=== PATIENT | male | born 1990 | race Hispanic/Latino ===

== ENCOUNTER 2019-01-27 18:22 | Inpatient (IN) | payer MEDICAID, OTHER ==
[~2019-01-27] VITALS: Ht 170.2 cm; Wt 71.7 kg
[2019-01-27] MEDS ORDERED: ACETAMINOPHEN EXTRA STRENGTH 500 MG TABLET ONE (18:52)
[2019-01-27] MEDS ORDERED: LORAZEPAM 2 MG/ML 1 ML VIAL ONE (18:52)
[2019-01-27 20:24] LABS: BASOPHILS % (AUTO) 0.1 % (0.0-5.0); EOSINOPHILS % (AUTO) 0.1 % (0.0-8.0); HEMATOCRIT 48.2 % (42-54); LYMPHOCYTES % (AUTO) 4.3 % (21.0-51.0); MEAN CORPUSCULAR HEMOGLOBIN 30.4 pg (27.0-33.0); MEAN CORPUSCULAR HGB CONC 33.7 g/dL (32.0-36.0); MEAN CORPUSCULAR VOLUME 90.2 fL (79-99); MONOCYTES % (AUTO) 3.7 % (3.0-13.0); NEUTROPHILS % (AUTO) 91.8 % (40.0-77.0); PLATELET COUNT (AUTO) 250 K/uL (130-400); RED BLOOD CELL COUNT(AUTO) 5.35 MIL/uL (4.50-6.20); RED CELL DISTRIBUTION WIDTH 13.2 % (11.0-15.5); WHITE BLOOD COUNT (AUTO) 19.4 K/uL (4.8-10.8)
[2019-01-27] MEDS ORDERED: ZOSYN 3.375GM+NS 50ML 50 ML IV ONE (20:35)
[2019-01-27 20:40] LABS: CREATININE 1.3 mg/dL (0.5-1.5); POTASSIUM 3.3 mmol/L (3.5-5.1)
[2019-01-27] MEDS ORDERED: FENTANYL CITRATE PF 50 MCG/1 ML 2ML VIAL ONE (21:09)
[2019-01-27] MEDS: SODIUM CHLORIDE 0.9% 1000ML 1,000 ML IV SCH (21:32)
[2019-01-27] MEDS ORDERED: ACETAMINOPHEN 325 MG TAB PO PRN (21:45)
[2019-01-27] MEDS ORDERED: ONDANSETRON HCL 4 MG/2 ML VIAL IV PRN (21:45)
[2019-01-27] MEDS ORDERED: VANCOMYCIN 1GM+NS 250ML 250 ML IV ONE (21:54)
[2019-01-27] MEDS ORDERED: VANCOMYCIN PROTOCOL PER PHARMACY IV SCH (22:15)
[2019-01-27] MEDS ORDERED: COMPOUND IV REFRIGERATED 1 EACH IVSOLN MISC PRN (22:15)
[2019-01-27] MEDS ORDERED: ACETAMINOPHEN 325 MG TAB ONE (22:56)
[2019-01-27] MEDS ORDERED: VANCOMYCIN 1.5 GM in SODIUM CHLORIDE 0.9% 250 ML IV ONE (23:00)
[2019-01-27 23:45] VITALS: BP 116/64
[2019-01-28] MEDS: POTASSIUM CHLORIDE 20MEQ/100ML 100 ML IV PRN ×2 (00:58→05:59)
[2019-01-28] MEDS: LIDOCAINE HCL-MPF 1% 2ML VIAL IVP PRN ×2 (00:59→05:59)
[2019-01-28 03:00] VITALS: BP 130/58
[2019-01-28] MEDS: ACETAMINOPHEN 325 MG TAB PO PRN ×3 (03:50→20:47)
[2019-01-28] MEDS: SODIUM CHLORIDE 0.9% 1000ML 1,000 ML IV SCH ×2 (05:45→09:50)
[2019-01-28] MEDS: ZOSYN 3.375GM+NS 50ML 50 ML IV SCH ×3 (05:45→20:47)
[2019-01-28 08:00] VITALS: BP 112/68
[2019-01-28] MEDS: VANCOMYCIN 1GM+NS 250ML 250 ML IV SCH ×3 (09:49→20:47)
[2019-01-28] MEDS: FAMOTIDINE/PF 20 MG/2 ML VIAL IV SCH ×2 (09:50→20:48)
[2019-01-28 12:00] VITALS: BP 118/72
[2019-01-28 16:00] VITALS: BP 119/62
[2019-01-28 16:35] LABS: AMPHET/METH SCREEN,URINE NEGATIVE (NEGATIVE); BARBITURATE SCREEN, URINE NEGATIVE (NEGATIVE); BENZODIAZEPINES SCREEN,URINE POSITIVE (NEGATIVE); CANNABINOID SCREEN,URINE NEGATIVE (NEGATIVE); COCAINE SCREEN,URINE POSITIVE (NEGATIVE); OPIATE SCREEN,URINE NEGATIVE (NEGATIVE); PHENCYCLIDINE SCREEN,URINE NEGATIVE (NEGATIVE)
[2019-01-28] MEDS: LORAZEPAM 2 MG/ML 1 ML VIAL IM PRN (17:38)
--- NOTE | 2019-01-28 18:23 | NUR ---
IA POSTPONED PRIMARY RN STATES PATIENT IS SHOWING SIGNS OF WITHDRAWAL. MEDICATION BEING ORDERED. WILL DEFER IA AT THIS TIME
[2019-01-28 19:00] VITALS: BP 107/54
[2019-01-28] MEDS ORDERED: CHLORDIAZEPOXIDE HCL 25 MG CAP PO ONE (21:00)
[2019-01-28] MEDS: MORPHINE SULFATE 4 MG/1ML SYG IV PRN (21:24)
[2019-01-29] VITALS: BP 126/71
[2019-01-29] MEDS: LORAZEPAM 2 MG/ML 1 ML VIAL IM PRN ×2 (00:57→14:36)
[2019-01-29] MEDS: MORPHINE SULFATE 4 MG/1ML SYG IV PRN ×4 (03:24→23:56)
[2019-01-29 04:00] VITALS: BP 125/70
[2019-01-29] MEDS: ZOSYN 3.375GM+NS 50ML 50 ML IV SCH ×3 (05:04→20:43)
[2019-01-29] MEDS: VANCOMYCIN 1GM+NS 250ML 250 ML IV SCH (05:04)
[2019-01-29 07:00] VITALS: BP 114/62
--- NOTE | 2019-01-29 07:30 | NUR ---
PATIENT UPDATE PT WITH UNPLEASANT BEHAVIOR, COMPLAINING ABOUT THAT HE'S BEEN ASKING FOR PAIN MED SINCE 1900 AND NOBODY LISTENS. ASKING FOR THE DERMATOLOGICAL SURGEON FOR A NURSE THAT WILL GIVE HIM PAIN MED ON TIME. WAS MEDICATED WITH TYLENOL FOR TEMP OF 100.7, PT ON BOTH THE VANCOMYCIN AND ZOSYN, STARTED ON LIBRIUM LAST NIGHT. WAS ASKING FOR THE ATIVAN RIGHT AFTER THE LIBRIUM WAS GIVEN. RT ARM WITH MARKED REDNESS AND SWELLING, PT ADMITTED BEING ON MARIJUANA, COCAINE AND HEROIN AND THE RT ARM CELLULITIS WAS SECONDARY TO THESE DRUGS THAT HE WAS INJECTING TO HIMSELF. DENIES HAVING HALLUCINATIONS, MARKED ANXIETY TO THE POINT OF RESTLESS, WANTING THE ATIVAN , MADE AWARE THAT IT'S EVERY 6 HRS. PT ORIENTED TO PERSON ONLY, KNOWS HIS NAME, HE DOESN'T WHERE HE'S AT, AND HE DOESN'T KNOW THE DATE. HE WANTS TO BE GIVEN HIS PAIN MED AND ANXIETY MED SOON HE ASKS FOR IT. MONITORED CLOSELY FOR WITHDRAWAL SYMPTOMS, CIWA SCORE OF 16. HIGHEST TEMP AT 100.7 LAST NIGHT. UNABLE TO TAKE PO LIQUIDS WELL, IVF D/C, WILL BE STARTED ON A BANANA BAG THIS AM.
[2019-01-29] MEDS: FAMOTIDINE/PF 20 MG/2 ML VIAL IV SCH ×2 (09:31→19:37)
[2019-01-29] MEDS: ENOXAPARIN SODIUM 40 MG/0.4 ML SYRINGE SQ SCH (09:47)
[2019-01-29] MEDS: M.V.I. IV [ADULT] 10 ML, FOLIC ACID 1 MG, THIAMINE HCL 100 MG in SODIUM CHLORIDE 0.9% 1... IV SCH (09:48)
[2019-01-29 11:00] VITALS: BP 115/64
[2019-01-29 12:36] LABS: BASOPHILS % (AUTO) 0.2 % (0.0-5.0); EOSINOPHILS % (AUTO) 0.7 % (0.0-8.0); HEMATOCRIT 36.2 % (42-54); MEAN CORPUSCULAR HEMOGLOBIN 30.8 pg (27.0-33.0); MEAN CORPUSCULAR HGB CONC 33.8 g/dL (32.0-36.0); MONOCYTES % (AUTO) 3.2 % (3.0-13.0); NEUTROPHILS % (AUTO) 90.9 % (40.0-77.0); PLATELET COUNT (AUTO) 180 K/uL (130-400); RED BLOOD CELL COUNT(AUTO) 3.98 MIL/uL (4.50-6.20); RED CELL DISTRIBUTION WIDTH 13.3 % (11.0-15.5); WHITE BLOOD COUNT (AUTO) 16.1 K/uL (4.8-10.8)
[2019-01-29 12:53] LABS: CREATININE 1.1 mg/dL (0.5-1.5); POTASSIUM 3.5 mmol/L (3.5-5.1)
[2019-01-29] MEDS ORDERED: VANCOMYCIN 1GM+NS 250ML 250 ML IV SCH (13:00)
[2019-01-29] MEDS: VANCOMYCIN 1.5 GM in SODIUM CHLORIDE 0.9% 250 ML IV SCH ×2 (14:00→20:44)
[2019-01-29 16:00] VITALS: BP 125/78
[2019-01-29] MEDS: ACETAMINOPHEN 325 MG TAB PO PRN ×2 (16:51→23:27)
--- NOTE | 2019-01-29 17:50 | NUR ---
CM IA IA WITH FAMILY- MOM AND DAD. PATIENT STUPOSU, SNORING. MOM AND DAD ENG SPKEING; PT LIVES WIHT PARENTS,PARTNER & . MOM STATES RECENTLY LOST HIS JOB, RECENT SERIOUS DEPRESSION, ESCALATION OF DRUB USE; STATES NO MD EVER. MOM EXPRESSES DISTRESS AND GRIEF. 1. SELF PAY PKT WILL BE GIVNE - FOR DOVE CLARE AND FOR SELF HELP DRUG ABSTINENCE PROGRAMS 2. WILL FOLLOW WEANING DRUG WEANING PROCESS CM TO ASK FOR CRATE MAKER CONSULT Addendum: 01/29/19 at 1826 by CARLOS NAVARRO RN CM Amended: Links added.
[2019-01-29 19:00] VITALS: BP 115/55
[2019-01-29] MEDS: SODIUM CHLORIDE 0.9% 1000ML 1,000 ML IV SCH (20:44)
[2019-01-30] VITALS (27 sets, daily range): BP systolic 99–129; BP diastolic 47–89
[2019-01-30] MEDS: MORPHINE SULFATE 4 MG/1ML SYG IV PRN ×4 (03:53→21:55)
[2019-01-30] MEDS ORDERED: LIDOCAINE HCL 2% VISCOUS 15 ML UDCUP PO PRN (04:30)
[2019-01-30 04:39] LABS: HEMATOCRIT 35.8 % (42-54); MEAN CORPUSCULAR HGB CONC 34.2 g/dL (32.0-36.0); MEAN CORPUSCULAR VOLUME 90.5 fL (79-99); PLATELET COUNT (AUTO) 182 K/uL (130-400); RED BLOOD CELL COUNT(AUTO) 3.96 MIL/uL (4.50-6.20); RED CELL DISTRIBUTION WIDTH 13.4 % (11.0-15.5); WHITE BLOOD COUNT (AUTO) 13.1 K/uL (4.8-10.8)
[2019-01-30 05:00] LABS: CREATININE 0.9 mg/dL (0.5-1.5); POTASSIUM 3.4 mmol/L (3.5-5.1)
[2019-01-30] MEDS: ZOSYN 3.375GM+NS 50ML 50 ML IV SCH ×3 (05:38→20:18)
[2019-01-30] MEDS: VANCOMYCIN 1.5 GM in SODIUM CHLORIDE 0.9% 250 ML IV SCH (05:38)
[2019-01-30] MEDS: SODIUM CHLORIDE 0.9% 1000ML 1,000 ML IV SCH ×3 (06:06→23:26)
[2019-01-30] MEDS: ENOXAPARIN SODIUM 40 MG/0.4 ML SYRINGE SQ SCH (09:00)
[2019-01-30] MEDS: M.V.I. IV [ADULT] 10 ML, FOLIC ACID 1 MG, THIAMINE HCL 100 MG in SODIUM CHLORIDE 0.9% 1... IV SCH (09:26)
[2019-01-30] MEDS: FAMOTIDINE/PF 20 MG/2 ML VIAL IV SCH ×2 (09:26→20:18)
--- NOTE | 2019-01-30 12:45 | NUR ---
PATIENT OFF UNIT TO OR HOLDING
[2019-01-30] MEDS ORDERED: LACTATED RINGERS 1000ML 1,000 ML IV ONE (12:55)
[2019-01-30] MEDS ORDERED: FENTANYL CITRATE PF 50 MCG/1 ML 2ML VIAL ONE ×2 (13:23→14:18)
[2019-01-30] MEDS ORDERED: LIDOCAINE PF 2% 5ML ABBOJECT ONE (13:23)
[2019-01-30] MEDS ORDERED: PROPOFOL 10 MG/ML 20ML VIAL IV ONE (13:23)
[2019-01-30] MEDS ORDERED: BACITRACIN 50,000 UNIT VIAL ONE (14:00)
[2019-01-30] MEDS ORDERED: KETOROLAC TROMETHAMINE 30MG/ML ONE (14:28)
[2019-01-30] MEDS ORDERED: MEPERIDINE-PF 25 MG/ML SYG ONE ×2 (15:00→15:10)
--- NOTE | 2019-01-30 15:43 | NUR ---
REPORT RECEIVED PATIENT S/P I&D OF RIGHT UPPER ARM B/P 109/67 P 89 O2 SATS 96 ON ROOM AIR GIVEN DEMEROL AT 1500 , ORDERS TO KEEP RIGHT UPPER ARM ELEVATED AND DRESSING CHANGES STARTED 01/31/19 DAILY., PATIENT RESUMED REGULAR DIET , ALERT AND ORIENTED X3 DRESSING INTACT, WILL CONTINUE TO MONITOR
[2019-01-30] MEDS: VANCOMYCIN 1.75 GM in SODIUM CHLORIDE 0.9% 250 ML IV SCH (17:32)
[2019-01-31] MEDS: VANCOMYCIN 1.75 GM in SODIUM CHLORIDE 0.9% 250 ML IV SCH ×2 (00:45→09:05)
[2019-01-31] MEDS: MORPHINE SULFATE 4 MG/1ML SYG IV PRN ×5 (00:49→22:13)
[2019-01-31 03:20] VITALS: BP 101/54
[2019-01-31] MEDS: ZOSYN 3.375GM+NS 50ML 50 ML IV SCH ×3 (04:16→20:48)
[2019-01-31 04:51] LABS: BASOPHILS % (AUTO) 0.3 % (0.0-5.0); EOSINOPHILS % (AUTO) 2.7 % (0.0-8.0); HEMATOCRIT 36.1 % (42-54); LYMPHOCYTES % (AUTO) 16.8 % (21.0-51.0); MEAN CORPUSCULAR HEMOGLOBIN 30.8 pg (27.0-33.0); MEAN CORPUSCULAR HGB CONC 33.9 g/dL (32.0-36.0); MEAN CORPUSCULAR VOLUME 90.8 fL (79-99); MONOCYTES % (AUTO) 9.1 % (3.0-13.0); NEUTROPHILS % (AUTO) 71.1 % (40.0-77.0); PLATELET COUNT (AUTO) 239 K/uL (130-400); RED BLOOD CELL COUNT(AUTO) 3.97 MIL/uL (4.50-6.20); RED CELL DISTRIBUTION WIDTH 13.5 % (11.0-15.5); WHITE BLOOD COUNT (AUTO) 7.7 K/uL (4.8-10.8)
[2019-01-31 05:15] LABS: CREATININE 0.8 mg/dL (0.5-1.5); POTASSIUM 3.5 mmol/L (3.5-5.1)
[2019-01-31 07:49] VITALS: BP 104/55
[2019-01-31] MEDS: FAMOTIDINE/PF 20 MG/2 ML VIAL IV SCH ×2 (09:05→20:48)
[2019-01-31] MEDS: ENOXAPARIN SODIUM 40 MG/0.4 ML SYRINGE SQ SCH (09:06)
[2019-01-31] MEDS: M.V.I. IV [ADULT] 10 ML, FOLIC ACID 1 MG, THIAMINE HCL 100 MG in SODIUM CHLORIDE 0.9% 1... IV SCH (09:06)
[2019-01-31 11:07] VITALS: BP 123/56
--- NOTE | 2019-01-31 15:32 | NUR ---
RECIEVED LAB RESULTS OF VANCO TROUGH 24.9 SENT TO RX
[2019-01-31 15:53] VITALS: BP_SYST 118; BP_SYST 120; BP_DIAS 53; BP_DIAS 69
--- NOTE | 2019-01-31 18:00 | NUR ---
DRESSING CHANGED TO RIGHT ARM , PATIENT MEDICATED BEFORE CHANGE PREFORMED WITH MORPHINE 4MG IV, PACKING REMOVED AREA CLEAN WITH NS AND NEW ISOFORM PACKING PLACE COVERED WITH 4X4'S THE ABD PAD AND WRAPPED WITH KERLIX AND TAPED SECURED. PATIENT TOLERATED PROCURED WELL.
[2019-01-31 19:00] VITALS: BP 137/76
[2019-01-31] MEDS: VANCOMYCIN 1.5 GM in SODIUM CHLORIDE 0.9% 250 ML IV SCH ×2 (19:07→23:16)
[2019-01-31 23:45] VITALS: BP 134/63
[2019-02-01 03:32] VITALS: BP 115/63
[2019-02-01] MEDS: ZOSYN 3.375GM+NS 50ML 50 ML IV SCH ×3 (03:37→20:28)
[2019-02-01] MEDS: MORPHINE SULFATE 4 MG/1ML SYG IV PRN ×3 (05:35→22:22)
[2019-02-01 06:38] LABS: BASOPHILS % (AUTO) 0.6 % (0.0-5.0); EOSINOPHILS % (AUTO) 3.7 % (0.0-8.0); HEMATOCRIT 41.1 % (42-54); LYMPHOCYTES % (AUTO) 18.6 % (21.0-51.0); MEAN CORPUSCULAR HEMOGLOBIN 30.4 pg (27.0-33.0); MEAN CORPUSCULAR HGB CONC 33.8 g/dL (32.0-36.0); MEAN CORPUSCULAR VOLUME 90.2 fL (79-99); MONOCYTES % (AUTO) 10.5 % (3.0-13.0); NEUTROPHILS % (AUTO) 66.6 % (40.0-77.0); PLATELET COUNT (AUTO) 348 K/uL (130-400); RED BLOOD CELL COUNT(AUTO) 4.55 MIL/uL (4.50-6.20); RED CELL DISTRIBUTION WIDTH 13.8 % (11.0-15.5); WHITE BLOOD COUNT (AUTO) 8.4 K/uL (4.8-10.8)
[2019-02-01 09:18] VITALS: BP 130/72
[2019-02-01] MEDS: VANCOMYCIN 1.5 GM in SODIUM CHLORIDE 0.9% 250 ML IV SCH ×2 (09:32→16:02)
[2019-02-01] MEDS: FAMOTIDINE/PF 20 MG/2 ML VIAL IV SCH ×2 (09:33→20:28)
[2019-02-01] MEDS: ENOXAPARIN SODIUM 40 MG/0.4 ML SYRINGE SQ SCH (09:35)
[2019-02-01] MEDS: M.V.I. IV [ADULT] 10 ML, FOLIC ACID 1 MG, THIAMINE HCL 100 MG in SODIUM CHLORIDE 0.9% 1... IV SCH (10:51)
[2019-02-01 12:13] VITALS: BP 95/47
[2019-02-01 16:27] VITALS: BP 119/55
[2019-02-01 19:30] VITALS: BP 128/79
[2019-02-01 23:30] VITALS: BP 117/59
[2019-02-02] MEDS: VANCOMYCIN 1.5 GM in SODIUM CHLORIDE 0.9% 250 ML IV SCH ×2 (00:34→09:08)
[2019-02-02 03:40] VITALS: BP 111/55
[2019-02-02] MEDS: ZOSYN 3.375GM+NS 50ML 50 ML IV SCH ×3 (05:53→21:22)
[2019-02-02 06:09] LABS: BASOPHILS % (AUTO) 0.6 % (0.0-5.0); EOSINOPHILS % (AUTO) 4.3 % (0.0-8.0); HEMATOCRIT 38.9 % (42-54); LYMPHOCYTES % (AUTO) 18.7 % (21.0-51.0); MEAN CORPUSCULAR HEMOGLOBIN 30.5 pg (27.0-33.0); MEAN CORPUSCULAR HGB CONC 33.6 g/dL (32.0-36.0); MEAN CORPUSCULAR VOLUME 90.7 fL (79-99); MONOCYTES % (AUTO) 9.9 % (3.0-13.0); NEUTROPHILS % (AUTO) 66.5 % (40.0-77.0); PLATELET COUNT (AUTO) 334 K/uL (130-400); RED BLOOD CELL COUNT(AUTO) 4.29 MIL/uL (4.50-6.20); RED CELL DISTRIBUTION WIDTH 13.9 % (11.0-15.5); WHITE BLOOD COUNT (AUTO) 7.7 K/uL (4.8-10.8)
[2019-02-02 06:36] LABS: ALBUMIN 2.7 g/dL (3.5-5.0); BILIRUBIN,TOTAL 0.1 mg/dL (0.2-1.0); CREATININE 0.8 mg/dL (0.5-1.5); POTASSIUM 3.9 mmol/L (3.5-5.1); TOTAL PROTEIN, SERUM 6.7 g/dL (6.0-8.3)
[2019-02-02 08:00] VITALS: BP 107/58
[2019-02-02] MEDS: M.V.I. IV [ADULT] 10 ML, FOLIC ACID 1 MG, THIAMINE HCL 100 MG in SODIUM CHLORIDE 0.9% 1... IV SCH (08:45)
--- NOTE | 2019-02-02 09:00 | NUR ---
CM ORDER FOR PLACEMENT REVIEWED ORDER RECD FOR PLACEMENT FOR WOUND CARE AND ABX. ADVISED Kinga PEREIRA PLACEMENT NOT POSSIBLE, PT IS UNINSURED; ADVISED Kinga PEREIRA POSSIBLE PATIENT MOM COULD ASSIST WITH WOUND CARE IF NECESSARY
[2019-02-02] MEDS: FAMOTIDINE/PF 20 MG/2 ML VIAL IV SCH ×2 (09:08→21:21)
[2019-02-02] MEDS: ENOXAPARIN SODIUM 40 MG/0.4 ML SYRINGE SQ SCH (09:09)
[2019-02-02] MEDS: MORPHINE SULFATE 4 MG/1ML SYG IV PRN ×3 (10:12→23:40)
[2019-02-02 12:00] VITALS: BP 116/52
[2019-02-02 16:00] VITALS: BP 121/68
[2019-02-02] MEDS: VANCOMYCIN 1.25 GM in SODIUM CHLORIDE 0.9% 250 ML IV SCH (17:38)
[2019-02-02 20:00] VITALS: BP 130/74
[2019-02-03] VITALS: BP 125/72
[2019-02-03] MEDS: VANCOMYCIN 1.25 GM in SODIUM CHLORIDE 0.9% 250 ML IV SCH ×2 (00:13→09:42)
[2019-02-03 04:00] VITALS: BP 124/62
[2019-02-03 05:17] LABS: BASOPHILS % (AUTO) 0.4 % (0.0-5.0); EOSINOPHILS % (AUTO) 3.2 % (0.0-8.0); HEMATOCRIT 39.2 % (42-54); LYMPHOCYTES % (AUTO) 18.1 % (21.0-51.0); MEAN CORPUSCULAR HEMOGLOBIN 30.6 pg (27.0-33.0); MEAN CORPUSCULAR HGB CONC 33.8 g/dL (32.0-36.0); MEAN CORPUSCULAR VOLUME 90.3 fL (79-99); MONOCYTES % (AUTO) 8.2 % (3.0-13.0); NEUTROPHILS % (AUTO) 70.1 % (40.0-77.0); PLATELET COUNT (AUTO) 359 K/uL (130-400); RED BLOOD CELL COUNT(AUTO) 4.34 MIL/uL (4.50-6.20); RED CELL DISTRIBUTION WIDTH 13.9 % (11.0-15.5); WHITE BLOOD COUNT (AUTO) 10.8 K/uL (4.8-10.8)
[2019-02-03 05:23] LABS: CREATININE 1.1 mg/dL (0.5-1.5); POTASSIUM 4.1 mmol/L (3.5-5.1)
[2019-02-03] MEDS: ZOSYN 3.375GM+NS 50ML 50 ML IV SCH (05:29)
[2019-02-03] MEDS: MORPHINE SULFATE 4 MG/1ML SYG IV PRN ×4 (05:29→12:40)
[2019-02-03 08:00] VITALS: BP 110/66
[2019-02-03] MEDS: M.V.I. IV [ADULT] 10 ML, FOLIC ACID 1 MG, THIAMINE HCL 100 MG in SODIUM CHLORIDE 0.9% 1... IV SCH (09:41)
[2019-02-03] MEDS: FAMOTIDINE/PF 20 MG/2 ML VIAL IV SCH (09:42)
[2019-02-03] MEDS: ENOXAPARIN SODIUM 40 MG/0.4 ML SYRINGE SQ SCH (09:50)
[2019-02-03] MEDS ORDERED: TYL3 PO (10:03)
--- NOTE | 2019-02-03 13:40 | NUR ---
DISCHARGE PATIENT GIVEN DISCHARGE INSTRUCTIONS VIA TEACH BACK BY SANTOS CALLOWAY RN. 20G PIV TO LFA DISCONTINUED, TIP INTACT. WOUND CARE TO RIGHT ARM INSTRUCTED/DEMONSTRATED TO PATIENT'S BROTHER/FRIEND, PICTURE TAKEN AND PLACED IN CHART. WOUND CARE TO BE DONE DAILY AND NEEDED. PATIENT AND BROTHER/FRIEND VOICED UNDERSTANDING. PATIENT'S MOTHER WAITING IN LOBBY TO TRANSPORT PATIENT HOME.
--- NOTE | 2019-02-03 16:19 | NUR ---
BEATRICECREEN - LOS X 7 Patient tolerating regular diet with no report of GI distress and PO intake at 100%. Patient LBM 01/31/19. Patient monitored labs: Alb 2.7. Patient with healthy BMI (24.7). RD to continue to monitor. Please notify RD as nutritional concerns arise. Thank you. Addendum: 02/03/19 at [address] RD Amended: Links added.
== END 2019-02-03 14:07 | disposition home or self-care (01) | DRG 872 ==
LOC: EDH 18:22 → OBSVTOIN 18:23 → EDHIP 18:23 → 3DH 22:40
PROVIDERS: ADMIT Internal Medicine; ATTEND Internal Medicine
PROC: 0H9BXZZ Drainage of Right Upper Arm Skin, External Approach (ICD-10-PCS; principal; 2019-01-30 14:18)
DX: A41.9 Sepsis, unspecified organism (principal); L03.113 Cellulitis of right upper limb; F10.239 Alcohol dependence with withdrawal, unspecified; L02.413 Cutaneous abscess of right upper limb; E87.6 Hypokalemia; F14.10 Cocaine abuse, uncomplicated
CPT/HCPCS: 36415; 73070; 73201; 80048; 80053; 80202; 80305; 83605; 84132; 85025; 85027; 86701; 87040; 87070; 87076; 87205; 87390; 93971; A4606; A6266; G0378; J1650; J1885; J2001; J2060; J2175; J2270; J2543; J2704; J3010; J3370; J3411; J3480; J3490; J7030; J7120

== ENCOUNTER 2019-12-02 11:57 | Emergency (ER) | payer OTHER ==
[~2019-12-02 11:57] MED LIST: TYL3 PO
[2019-12-02 12:58] LABS: AMPHET/METH SCREEN,URINE NEGATIVE (NEGATIVE); BARBITURATE SCREEN, URINE NEGATIVE (NEGATIVE); BENZODIAZEPINES SCREEN,URINE POSITIVE (NEGATIVE); CANNABINOID SCREEN,URINE POSITIVE (NEGATIVE); COCAINE SCREEN,URINE POSITIVE (NEGATIVE); OPIATE SCREEN,URINE POSITIVE (NEGATIVE); PHENCYCLIDINE SCREEN,URINE NEGATIVE (NEGATIVE)
[2019-12-02 13:19] LABS: BASOPHILS % (AUTO) 0.2 % (0.0-5.0); EOSINOPHILS % (AUTO) 2.7 % (0.0-8.0); HEMATOCRIT 46.7 % (42-54); LYMPHOCYTES % (AUTO) 23.5 % (21.0-51.0); MEAN CORPUSCULAR HEMOGLOBIN 29.6 pg (27.0-33.0); MEAN CORPUSCULAR HGB CONC 33.4 g/dL (32.0-36.0); MEAN CORPUSCULAR VOLUME 88.6 fL (79-99); MONOCYTES % (AUTO) 6.8 % (3.0-13.0); NEUTROPHILS % (AUTO) 66.5 % (40.0-77.0); PLATELET COUNT (AUTO) 232 K/uL (130-400); RED BLOOD CELL COUNT(AUTO) 5.27 MIL/uL (4.50-6.20); RED CELL DISTRIBUTION WIDTH 12.3 % (11.0-15.5); WHITE BLOOD COUNT (AUTO) 5.8 K/uL (4.8-10.8)
[2019-12-02 13:31] LABS: CREATININE 0.8 mg/dL (0.5-1.5)
[2019-12-02 13:35] LABS: ALBUMIN 3.9 g/dL (3.5-5.0); BILIRUBIN,TOTAL 0.2 mg/dL (0.2-1.0); TOTAL PROTEIN, SERUM 7.2 g/dL (6.0-8.3)
== END 2019-12-02 14:13 | disposition home or self-care (01) ==
LOC: EDH 11:57
DX: R56.9 Unspecified convulsions (principal); F14.10 Cocaine abuse, uncomplicated; Z98.890 Other specified postprocedural states
CPT/HCPCS: 36415; 70450; 80053; 80305; 85025; 93005

== ENCOUNTER 2020-04-02 00:55 | Emergency (ER) | payer OTHER ==
[2020-04-02] MEDS ORDERED: TETANUS/DIPHTHERIA TOXOID [ADULT] 0.5 ML VIAL IM ONE (01:15)
[2020-04-02] MEDS ORDERED: SULFAMETHOX-TMP DS 800/160 TAB ONE (01:15)
== END 2020-04-02 02:16 | disposition home or self-care (01) ==
LOC: EDH 00:55
DX: S63.502A Unspecified sprain of left wrist, initial encounter (principal); S63.501A Unspecified sprain of right wrist, initial encounter; Z88.6 Allergy status to analgesic agent; X58.XXXA Exposure to other specified factors, initial encounter; Y93.89 Activity, other specified; Y92.89 Other specified places as the place of occurrence of the external cause; Y99.8 Other external cause status
CPT/HCPCS: 73110; 90471; 90714

== ENCOUNTER 2021-06-24 16:22 | Inpatient (IN) | payer SELFPAY ==
[~2021-06-24] VITALS: Ht 170.2 cm; Wt 66.2 kg
[2021-06-24 16:24] VITALS: BP 127/77
[2021-06-24] MEDS ORDERED: ACETAMINOPHEN 500 MG TABLET ONE (16:29)
[2021-06-24] MEDS ORDERED: ACETAMINOPHEN 500 MG TABLET PO ONE (17:00)
[2021-06-24] MEDS ORDERED: ZOSYN 3.375GM+NS 50ML 50 ML IV STA (22:02)
[2021-06-24] MEDS ORDERED: 0.9%NACL 1000ML 1,983 ML IV ONE (22:30)
[2021-06-24] MEDS ORDERED: MORPHINE 4 MG SYG IV ONE (22:30)
[2021-06-24] MEDS ORDERED: VANCOMYCIN 1G VIAL IVPB ONE (22:30)
[2021-06-24] MEDS ORDERED: IBUPROFEN 600 MG TABLET PO ONE (22:30)
[2021-06-24 22:32] LABS: BASOPHILS % (AUTO) 0.1 % (0.0-5.0); HEMATOCRIT 48.1 % (42-54); LYMPHOCYTES % (AUTO) 6.4 % (21.0-51.0); MEAN CORPUSCULAR HEMOGLOBIN 30.7 pg (27.0-33.0); MEAN CORPUSCULAR HGB CONC 34.1 g/dL (32.0-36.0); MEAN CORPUSCULAR VOLUME 89.9 fL (79-99); MONOCYTES % (AUTO) 6.5 % (3.0-13.0); NEUTROPHILS % (AUTO) 86.5 % (40.0-77.0); PLATELET COUNT (AUTO) 230 K/uL (130-400); RED BLOOD CELL COUNT(AUTO) 5.35 MIL/uL (4.50-6.20); RED CELL DISTRIBUTION WIDTH 12.1 % (11.0-15.5); WHITE BLOOD COUNT (AUTO) 20.4 K/uL (4.8-10.8)
[2021-06-24 22:45] LABS: POTASSIUM 3.8 mmol/L (3.5-5.1)
[2021-06-24 22:47] LABS: INR 1.06 (0.85-1.15); PROTHROMBIN TIME 11.5 SEC (9.6-11.6)
[2021-06-24 22:48] LABS: PARTIAL THROMBOPLASTIN TIME 29.1 SEC (26.3-35.5)
[2021-06-24 22:50] LABS: ALBUMIN 3.9 g/dL (3.5-5.0); TOTAL PROTEIN, SERUM 7.8 g/dL (6.0-8.3)
[2021-06-24] MEDS ORDERED: PHARMACY COMMUNICATION MISC SCH (23:30)
[2021-06-24] MEDS ORDERED: VANCOMYCIN KIT 250 ML IV ONE (23:30)
[2021-06-25] VITALS (7 sets, daily range): BP systolic 116–128; BP diastolic 61–77
[2021-06-25] MEDS ORDERED: ONDANSETRON 4MG INJ IV PRN (01:00)
[2021-06-25] MEDS ORDERED: ZOLPIDEM TARTRATE 5 MG TAB PO PRN (01:00)
[2021-06-25] MEDS ORDERED: MORPHINE 2 MG SYG IV PRN (01:00)
[2021-06-25] MEDS ORDERED: VANCOMYCIN PROTOCOL PER PHARMACY IV PRN (01:00)
[2021-06-25 01:08] LABS: APPEARANCE,URINE Clear (CLEAR); BILIRUBIN,URINE Negative (NEGATIVE); COLOR,URINE Yellow (YELLOW); GLUCOSE, URINE (UA) Negative (NEGATIVE); KETONES,URINE 40 mg/dL (NEGATIVE); LEUKOCYTE ESTERASE ,URINE Negative (NEGATIVE); NITRATE,URINE Negative (NEGATIVE); OCCULT BLOOD,URINE Negative (NEGATIVE); PH,URINE 5.5 (5.0-8.0); PROTEIN,URINE Trace mg/dL (NEGATIVE)
[2021-06-25] MEDS ORDERED: ZOSYN 3.375GM+NS 50ML 50 ML IV ONE (01:13)
[2021-06-25] MEDS ORDERED: IBUPROFEN 600 MG TABLET ONE (01:13)
[2021-06-25] MEDS ORDERED: DiphenhydrAMINE HCL 50 MG/ML VIAL ONE (02:47)
[2021-06-25] MEDS ORDERED: SOLU-MEDROL 125MG VIAL ONE (02:47)
[2021-06-25] MEDS: LACTATED RINGERS 1000ML 1,000 ML IV SCH (04:21)
[2021-06-25] MEDS: ZOSYN 3.375GM+NS 50ML 50 ML IV SCH ×3 (05:00→20:40)
[2021-06-25] MEDS: MORPHINE 4 MG SYG IV PRN (10:22)
[2021-06-25] MEDS: FAMOTIDINE 20MG VIAL IV SCH ×2 (10:29→20:40)
[2021-06-25] MEDS ORDERED: 0.9% NACL 250ML 250 ML IV SCH (14:00)
[2021-06-25] MEDS ORDERED: VANCOMYCIN 750MG VIAL IVPB SCH (14:00)
[2021-06-25] MEDS: DiphenhydrAMINE HCL 25 MG/10 ML ELIXIR UDCUP PO SCH ×2 (14:23→20:40)
[2021-06-25] MEDS ORDERED: IBUPROFEN 600 MG TABLET PO PRN (15:30)
[2021-06-25] MEDS ORDERED: ACETAMINOPHEN 500 MG TABLET PO PRN ×2 (15:30)
[2021-06-25] MEDS ORDERED: KETOROLAC 15MG/ML VIAL (15MG/ML) IM PRN (17:30)
[2021-06-25] MEDS: KETOROLAC 15MG/ML VIAL (15MG/ML) IV PRN (23:26)
[2021-06-26] VITALS (24 sets, daily range): BP systolic 96–138; BP diastolic 40–86
[2021-06-26] MEDS: MORPHINE 4 MG SYG IV PRN ×3 (01:09→17:30)
[2021-06-26] MEDS: ZOSYN 3.375GM+NS 50ML 50 ML IV SCH ×2 (04:33→13:14)
[2021-06-26] MEDS: LACTATED RINGERS 1000ML 1,000 ML IV SCH ×2 (04:34→07:04)
[2021-06-26 05:17] LABS: BASOPHILS % (AUTO) 0.2 % (0.0-5.0); EOSINOPHILS % (AUTO) 0.2 % (0.0-8.0); HEMATOCRIT 38.9 % (42-54); LYMPHOCYTES % (AUTO) 6.2 % (21.0-51.0); MEAN CORPUSCULAR HEMOGLOBIN 30.4 pg (27.0-33.0); MEAN CORPUSCULAR HGB CONC 33.9 g/dL (32.0-36.0); MEAN CORPUSCULAR VOLUME 89.6 fL (79-99); MONOCYTES % (AUTO) 6.8 % (3.0-13.0); NEUTROPHILS % (AUTO) 85.8 % (40.0-77.0); PLATELET COUNT (AUTO) 227 K/uL (130-400); RED BLOOD CELL COUNT(AUTO) 4.34 MIL/uL (4.50-6.20); RED CELL DISTRIBUTION WIDTH 11.9 % (11.0-15.5)
[2021-06-26 05:28] LABS: MAGNESIUM 1.8 mg/dL (1.80-2.40); PHOSPHORUS 3.1 mg/dL (2.5-4.9)
[2021-06-26] MEDS: KETOROLAC 15MG/ML VIAL (15MG/ML) IV PRN ×3 (05:31→20:32)
[2021-06-26] MEDS ORDERED: MEPERIDINE-PF 25 MG/ML SYG ONE ×2 (08:46→10:54)
[2021-06-26] MEDS ORDERED: MIDAZOLAM HCL 1 MG/ML 2ML VIAL ONE (09:51)
[2021-06-26] MEDS ORDERED: SUCCINYLCHOLINE CHLORIDE 20 MG/ML 10 ML VIAL ONE (09:51)
[2021-06-26] MEDS ORDERED: LIDOCAINE HCL MPF 1% 5ML VIAL ONE (09:51)
[2021-06-26] MEDS ORDERED: PROPOFOL 10 MG/ML 20ML VIAL IV ONE (09:52)
[2021-06-26] MEDS ORDERED: ROCURONIUM 10MG/1ML SYR 10 MG/ML ML ONE (09:52)
[2021-06-26] MEDS ORDERED: FENTANYL CITRATE PF 50 MCG/1 ML 2ML VIAL ONE (09:52)
[2021-06-26] MEDS: DiphenhydrAMINE HCL 25 MG/10 ML ELIXIR UDCUP PO SCH ×3 (13:14→20:29)
[2021-06-26] MEDS: FAMOTIDINE 20MG VIAL IV SCH ×2 (13:14→20:29)
[2021-06-26 14:52] LABS: HEMATOCRIT 40.3 % (42-54); MEAN CORPUSCULAR HEMOGLOBIN 30.5 pg (27.0-33.0); MEAN CORPUSCULAR HGB CONC 32.5 g/dL (32.0-36.0); MEAN CORPUSCULAR VOLUME 93.9 fL (79-99); PLATELET COUNT (AUTO) 206 K/uL (130-400); RED BLOOD CELL COUNT(AUTO) 4.29 MIL/uL (4.50-6.20); RED CELL DISTRIBUTION WIDTH 12.3 % (11.0-15.5); WHITE BLOOD COUNT (AUTO) 14.9 K/uL (4.8-10.8)
[2021-06-26 15:43] LABS: LYMPHOCYTES % (MANUAL) 11 % (22-44); MAN.DIFF COMMENT-IMPRESSION MANUAL DIFFERENTIAL; MONOCYTES % (MANUAL) 4 % (2-9); SEGMENTED NEUTROPHILS % 85 % (40-70)
[2021-06-26 15:44] LABS: PLATELET MORPHOLOGY COMMENT ADEQUATE
[2021-06-26] MEDS: CLINDAMYCIN IVPB 600MG/50ML 50 ML IV SCH (16:09)
[2021-06-27] MEDS: CLINDAMYCIN IVPB 600MG/50ML 50 ML IV SCH ×2 (01:25→09:43)
[2021-06-27] MEDS: MORPHINE 4 MG SYG IV PRN ×2 (03:19→10:00)
[2021-06-27 03:47] VITALS: BP 127/79
[2021-06-27 05:00] LABS: BASOPHILS % (AUTO) 0.3 % (0.0-5.0); EOSINOPHILS % (AUTO) 1.4 % (0.0-8.0); LYMPHOCYTES % (AUTO) 15.4 % (21.0-51.0); MEAN CORPUSCULAR HGB CONC 32.4 g/dL (32.0-36.0); MEAN CORPUSCULAR VOLUME 92.5 fL (79-99); MONOCYTES % (AUTO) 6.6 % (3.0-13.0); NEUTROPHILS % (AUTO) 76.1 % (40.0-77.0); PLATELET COUNT (AUTO) 255 K/uL (130-400); RED BLOOD CELL COUNT(AUTO) 4.54 MIL/uL (4.50-6.20); RED CELL DISTRIBUTION WIDTH 12.4 % (11.0-15.5); WHITE BLOOD COUNT (AUTO) 9.4 K/uL (4.8-10.8)
[2021-06-27 05:26] LABS: POTASSIUM 3.4 mmol/L (3.5-5.1)
[2021-06-27] MEDS: KETOROLAC 15MG/ML VIAL (15MG/ML) IV PRN (07:39)
[2021-06-27 07:53] VITALS: BP 120/65
[2021-06-27] MEDS: DiphenhydrAMINE HCL 25 MG/10 ML ELIXIR UDCUP PO SCH (09:43)
[2021-06-27] MEDS: FAMOTIDINE 20MG VIAL IV SCH (09:43)
[2021-06-27] MEDS ORDERED: LEVOFLOXACIN 750 MG TABLET PO SCH (10:00)
[2021-06-27] MEDS: LACTATED RINGERS 1000ML 1,000 ML IV SCH (11:00)
[2021-06-27] MEDS ORDERED: LEVO750T46 PO (11:41)
[2021-06-27] MEDS ORDERED: Sulfamethox-Tmp Ds 800/160 Tab PO (11:41)
[2021-06-27] MEDS ORDERED: KETO10 PO (11:41)
[2021-06-27 11:56] VITALS: BP 133/84
[2021-06-27] MEDS ORDERED: SULFAMETHOX-TMP DS 800/160 TAB PO SCH (21:00)
== END 2021-06-27 13:20 | disposition home or self-care (01) | DRG 872 ==
LOC: EDH 16:22 → EDHIP 16:23 → 3AH 06-25 07:59
PROVIDERS: ADMIT Hospitalist; ATTEND Hospitalist
PROC: 0X950ZZ Drainage of Left Axilla, Open Approach (ICD-10-PCS; principal; 2021-06-26 09:56)
DX: A41.9 Sepsis, unspecified organism (principal); L02.412 Cutaneous abscess of left axilla; L03.112 Cellulitis of left axilla; D72.825 Bandemia; A49.01 Methicillin susceptible Staphylococcus aureus infection, unspecified site; F17.210 Nicotine dependence, cigarettes, uncomplicated; F12.90 Cannabis use, unspecified, uncomplicated; L02.422 Furuncle of left axilla; L73.1 Pseudofolliculitis barbae; Z20.822 Contact with and (suspected) exposure to COVID-19; Z88.1 Allergy status to other antibiotic agents; Z88.8 Allergy status to other drugs, medicaments and biological substances
CPT/HCPCS: 36415; 80048; 80053; 81003; 82550; 83036; 83605; 83735; 84100; 84484; 85025; 85610; 85730; 86850; 86900; 86901; 87040; 87070; 87076; 87077; 87088; 87186; 87205; 87635; 87804; 87880; 93005; 96374; A6266; G0378; J0330; J1200; J1885; J2175; J2250; J2270; J2405; J2543; J2704; J2930; J3010; J3370; J3490; J7030; J7120

== ENCOUNTER 2024-05-29 02:48 | Emergency (ER) | payer BC, OTHER ==
[~2024-05-29] VITALS: Ht 170.2 cm; Wt 68.0 kg
[2024-05-29 02:55] VITALS: BP 156/92; PULSE 108; RESP 18; O2SAT 99
== END 2024-05-29 03:23 | disposition home or self-care (01) ==
LOC: EDH 02:48
DX: S01.311A Laceration without foreign body of right ear, initial encounter (principal); Z88.1 Allergy status to other antibiotic agents; Z88.6 Allergy status to analgesic agent; Z98.890 Other specified postprocedural states; W22.8XXA Striking against or struck by other objects, initial encounter; Y93.89 Activity, other specified; Y92.89 Other specified places as the place of occurrence of the external cause; Y99.8 Other external cause status